=== PATIENT | female | born 1980 | race Caucasian/White ===

== ENCOUNTER 2022-11-24 16:35 | Emergency (ER) | payer OTHER ==
[~2022-11-24] VITALS: Ht 172.7 cm; Wt 63.5 kg
[~2022-11-24 16:35] MED LIST: ATIVAN0.5 MG PO; MOTRIN800 MG PO; TRIAMCINOLON0.5 % EX
[2022-11-24 17:30] VITALS: BP 123/69
[2022-11-24 17:45] VITALS: BP 129/70
[2022-11-24] MEDS ORDERED: KEFLEX500 MG PO (17:52)
[2022-11-24 18:02] VITALS: BP 92/62
[2022-11-24 18:08] VITALS: BP 92/62
== END 2022-11-24 18:12 | disposition home or self-care (01) | DRG 605 ==
LOC: ED 16:35
DX: S01.03XA Puncture wound without foreign body of scalp, initial encounter (principal); W45.0XXA Nail entering through skin, initial encounter; Y92.009 Unspecified place in unspecified non-institutional (private) residence as the place of occurrence of the external cause